=== PATIENT | female | born 1975 ===

== ENCOUNTER 2021-12-27 10:15 | Inpatient (IN) | payer OTHER ==
[~2021-12-27] VITALS: Ht 160 cm; Wt 72.6 kg
[2021-12-29] MEDS ORDERED: FAMOTIDINE20 MG (08:26)
== END 2021-12-30 13:53 | disposition home or self-care (01) | DRG 743 ==
LOC: OB/GYN 12-28 09:07 → O/R 12-28 09:07 → OB/GYN 12-28 10:15
PROVIDERS: ADMIT Specialist; ATTEND Specialist
PROC: 0UT70ZZ Resection of Bilateral Fallopian Tubes, Open Approach (ICD-10-PCS; 2021-12-28)
PROC: 0UT90ZZ Resection of Uterus, Open Approach (ICD-10-PCS; principal; 2021-12-28 13:30)
DX: N80.0 Endometriosis of uterus (principal); D25.1 Intramural leiomyoma of uterus; N80.2 Endometriosis of fallopian tube; N92.6 Irregular menstruation, unspecified